=== PATIENT | male | born 1950 | race Caucasian/White ===

== ENCOUNTER → 2016-10-07 | Outpatient (CLI) | payer MEDICARE ==
--- NOTE | 2016-10-07 10:24 | PCVCIMAG ---
APPROVED REPORT Study performed: 10/07/2016 08:53:08 EXAM: Comprehensive 2D, Doppler, and color-flow Echocardiogram Status: routine Other Information Study Quality: Adequate Indications Myxoma Resection, ASD closure 2D Dimensions LVEF(%): 69.22 (>50%) IVSd: 9.15 (7-11mm) LVDd: 42.24 mm PWd: 9.29 (7-11mm) LVDs: 25.96 (25-40mm) Left Atrium: 27.60 (27-40mm) Aortic Root: 30.54 mm LV Single Plane 4CH: 59.89 % LV Single Plane 2CH: 52.93 %Meredith's LVEF: 56.41 % Biplane EF: 56.0 % Volumes Left Atrial Volume (Systole) Single Plane 4CH: 22.49 mLSingle Plane 2CH: 42.12 mL Aortic Valve AoV Peak Ced.: 1.12 m/s AO Peak Gr.: 5.03 mmHgLVOT Max P.63 mmHg LVOT Max V: 0.95 m/s Mitral Valve E/A Ratio: 1.3 MV Decel. Time: 288.14 ms MV E Max Ced.: 0.67 m/s MV A Ced.: 0.51 m/s MV PHT: 83.56 ms IVRT: 96.89 ms Pulmonary Valve PV Peak Ced.: 1.26 m/sPV Peak Gr.: 6.35 mmHg Pulmonary Vein P Vein S: 0.43 m/sP Vein A: 0.28 m/s P Vein D: 0.61 m/sP Vein A Dur.: 114.2 msec P Vein S/D Ratio: 0.70 Tricuspid Valve TR Peak Ced.: 2.41 m/s TR Peak Gr.: 23.15 mmHg Left Ventricle The left ventricle is normal size. There is normal LV segmental wall motion. There is normal left ventricular wall thickness. Left ventricular systolic function is normal. The left ventricular ejection fraction is within the normal range. LVEF is 55-60%. The left ventricular diastolic function is normal. Right Ventricle The right ventricle is normal size. The right ventricular systolic function is normal. Atria The left atrium size is normal. The right atrium size is normal. Aortic Valve The aortic valve is normal in structure. No aortic regurgitation is present. There is no aortic valvular stenosis. Mitral Valve The mitral valve is normal in structure. There is no mitral valve regurgitation noted. No evidence of mitral valve stenosis. Tricuspid Valve The tricuspid valve is normal in structure. There is mild tricuspid valve regurgitation noted with PAP of 30 mmHg. Pulmonic Valve The pulmonary valve is normal in structure. There is no pulmonic valvular regurgitation. Great Vessels The aortic root is normal in size. IVC is normal in size and collapses with >50% inspiration Pericardium There is no pericardial effusion. <Conclusion> Left ventricular systolic function is normal. There is normal LV segmental wall motion. LVEF is 55-60%. The aortic valve is normal in structure. No aortic regurgitation or stenosis The mitral valve is normal in structure. No mitral valve regurgitation noted. Pulmonary artery pressure could not be reliably ascertained There is no pericardial effusion.
== END | disposition home or self-care (01) ==
LOC: PCVCIMAG 09:10
PROVIDERS: ATTEND Internal Medicine
DX: I07.1 Rheumatic tricuspid insufficiency (principal); E78.5 Hyperlipidemia, unspecified; E78.00 Pure hypercholesterolemia, unspecified; I25.10 Atherosclerotic heart disease of native coronary artery without angina pectoris; Z85.828 Personal history of other malignant neoplasm of skin; Z86.018 Personal history of other benign neoplasm; Z79.82 Long term (current) use of aspirin; Z79.899 Other long term (current) drug therapy
CPT/HCPCS: 80061; 93005; 93306; G0463

== ENCOUNTER → 2017-10-09 | Outpatient (CLI) | payer MEDICARE | END | disposition home or self-care (01) | LOC: PCVCCLINIC 12:01 | DX: E78.5 Hyperlipidemia, unspecified (principal); Z86.018 Personal history of other benign neoplasm | CPT/HCPCS: 80061; 93005; G0463 ==

== ENCOUNTER → 2018-09-20 | Outpatient (CLI) | payer MEDICARE ==
--- NOTE | 2018-09-20 12:40 | PCVCIMAG ---
APPROVED REPORT Study performed: 09/20/2018 10:03:31 EXAM: Comprehensive 2D, Doppler, and color-flow Echocardiogram Patient Location: Echo lab Status: routine BSA: 1.92 HR: 64 bpmBP: 126/82 mmHg Rhythm: NSR Other Information Study Quality: Adequate Risk Factors: Cardiac Risk Factors: Hyperlipidemia Indications S/P Left Atrial Myxoma Resection (2014) ASD Closure (2014) 2D Dimensions IVSd: 8.09 (7-11mm)LVOT Diam: 20.00 (18-24mm) LVDd: 43.38 mm PWd: 9.31 (7-11mm)Ascending Ao: 34.75 (22-36mm) LVDs: 27.42 (25-40mm) Left Atrium: 31.27 (27-40mm) Aortic Root: 34.60 mm LV Single Plane 4CH: 65.82 % LV Single Plane 2CH: 69.45 % Biplane EF: 67.4 % Volumes Left Atrial Volume (Systole) Single Plane 4CH: 47.46 mLSingle Plane 2CH: 41.11 mL LA ESV Index: 23.00 mL/m2 Aortic Valve AoV Peak Ced.: 1.35 m/s AO Peak Gr.: 7.24 mmHgLVOT Max P.46 mmHg LVOT Max V: 1.06 m/s URIEL Vmax: 2.55 cm2 Mitral Valve E/A Ratio: 1.4 MV Decel. Time: 326.90 ms MV E Max Ced.: 0.89 m/s MV A Ced.: 0.63 m/s IVRT: 69.20 ms TDI E/Lateral E': 8.90E/Medial E': 11.13 Medial E' Ced.: 0.08 m/s Lateral E' Ced.: 0.10 m/s Pulmonary Valve PV Peak Ced.: 1.22 m/sPV Peak Gr.: 5.93 mmHg IA End Vmax: 0.89 m/s Pulmonary Vein P Vein S: 0.55 m/sP Vein A: 0.38 m/s P Vein D: 0.65 m/sP Vein A Dur.: 83.0 msec P Vein S/D Ratio: 0.85 Tricuspid Valve TR Peak Ced.: 2.43 m/sRAP Estimate: 7.00 mmHg TR Peak Gr.: 23.56 mmHg PA Pressure: 31.00 mmHg Left Ventricle The left ventricle is normal size. There is normal LV segmental wall motion. There is normal left ventricular wall thickness. Left ventricular systolic function is normal. The left ventricular ejection fraction is within the normal range. LVEF is 65%. The left ventricular diastolic function is normal. Right Ventricle The right ventricle is normal size. The right ventricular systolic function is normal. Atria The left atrium size is normal. The right atrium size is normal. Aortic Valve The aortic valve is minimally sclerotic Trace aortic regurgitation. There is no aortic valvular stenosis. Mitral Valve The mitral valve is normal in structure. There is no mitral valve regurgitation noted. No evidence of mitral valve stenosis. Tricuspid Valve The tricuspid valve is normal in structure. Trace tricuspid regurgitation. Pulmonary artery pressure is 30 mmHg. Pulmonic Valve The pulmonary valve is normal in structure. Mild pulmonic regurgitation. Great Vessels The aortic root is normal in size. IVC is normal in size and collapses >50% with inspiration. Pericardium There is no pericardial effusion. <Conclusion> Left ventricular systolic function is normal. There is normal LV segmental wall motion. LVEF is 65%. Normal diastolic function The aortic valve is minimally sclerotic. Trace aortic regurgitation, no stenosis. The mitral valve is normal in structure. No mitral valve regurgitation Trace tricuspid regurgitation. Pulmonary artery pressure of 30 mmHg. There is no pericardial effusion.
== END | disposition home or self-care (01) ==
LOC: PCVCIMAG 09:48
PROVIDERS: ATTEND Internal Medicine
DX: D15.1 Benign neoplasm of heart (principal); I25.10 Atherosclerotic heart disease of native coronary artery without angina pectoris; E78.5 Hyperlipidemia, unspecified; E78.00 Pure hypercholesterolemia, unspecified; Z79.82 Long term (current) use of aspirin
CPT/HCPCS: 36415; 80061; 93005; 93306; G0463